=== PATIENT | female | born 1985 | race Caucasian/White ===

== ENCOUNTER 2019-11-19 08:36 | Outpatient (CLI) | payer OTHER, SELFPAY ==
--- NOTE | ~2019-11-19 | US_ITS ---
EXAMINATION: US OB <=14 wk fetus w TV DATE: 11/19/2019 09:35 INDICATION: Establish dating of during first trimester. Miscarriages with 2 prior pregnanci es. TECHNIQUE: Real-time pelvic ultrasound utilizing both a transvaginal and transabdominal probe was pe rformed. The interpreting radiologist was not present for the study. COMPARISON: None. FINDINGS: The uterus measures 9.8 x 6.9 x 4.9 cm. There is an intrauterine gestational sac. A yolk sac and fet al pole are identified. There is an additional echogenic filling defect projecting into the lumen of the gestational sac which is of indeterminate etiology. The crown rump length measures 7 mm, which co rrelates with an estimated gestational age of 6 weeks and 4 days. heart motion is identified me asuring 149 beats per minute (bpm) by M-mode Doppler. 2.4 x 2.4 x 0.5 cm hypoechoic subchorionic stacey pranay. The right ovary measures 3.1 x 2.3 x 2.3 cm. 2.3 cm anechoic corpus luteum cyst in the right ovary. N ormal vascular flow to the right ovary on color Doppler. The left ovary is not visualized. There is n o free fluid in the pelvis. IMPRESSION: 1. Single living fetus with heart rate of 149 bpm. 2. Gestational age by ultrasound of 6 weeks 4 day(s) +/- 4 day(s) with ultrasound estimated date of delivery (EMPERATRIZ) of 07/10/2020. 3. Indeterminate nodular echogenic region extending into the lumen of the gestational sac. Differenti al would include artifactual appearance due to mass effect from small underlying subchorionic hematom a or potentially a less advanced or failed twin . Recommend attention on follow-up imaging. Reviewed, dictated and finalized at location A. IMPRESSION: 1. Single living fetus with heart rate of 149 bpm. 2. Gestational age by ultrasound of 6 weeks 4 day(s) +/- 4 day(s) with ultraso und estimated date of delivery (EMPERATRIZ) of 07/10/2020. 3. Indeterminate nodular echogenic region extending into the lumen of the gesta tional sac. Differential would include artifactual appearance due to mass effec t from small underlying subchorionic hematoma or potentially a less advanced or failed twin . Recommend attention on follow-up imaging.
== END 2019-11-19 08:40 | disposition home or self-care (01) ==
PROVIDERS: PCP Family Medicine; Visit Provider Obstetrics & Gynecology Gynecology
DX: O26.21 Pregnancy care for patient with recurrent pregnancy loss, first trimester (principal); Z3A.01 Less than 8 weeks gestation of pregnancy
CPT/HCPCS: 76801; 76817

== ENCOUNTER 2019-12-22 13:46 | Outpatient (CLI) | payer OTHER, SELFPAY ==
--- NOTE | ~2019-12-22 | US_ITS ---
EXAMINATION: US OB <= 14 weeks fetus DATE: 12/22/2019 14:38 INDICATION: Subchorionic hematoma. TECHNIQUE: Real-time transabdominal pelvic ultrasound was performed. COMPARISON: Ultrasound 11/19/2019 FINDINGS: The uterus measures 10.8 x 8.5 x 9.0 cm. There is an intrauterine gestational sac. A yolk sac is orestes ntified. The crown rump length measures 6.0 cm, which correlates with an estimated gestational age of 12 weeks and 4 day(s) (+/-) 1 week(s) and 1 day(s). heart motion is identified measurin g 180 beats per minute (bpm) by M-mode Doppler. There is a small subchorionic hematoma measuring 1.9 x 1.2 x 1.6 cm. The right ovary measures 2.3 x 2.0 x 2.5 cm. The left ovary is not visualized. There is no free fluid in the pelvis. IMPRESSION: 1. Single living intrauterine gestation with estimated date of delivery of 07/10/2020 based on the u ltrasound from 11/19/2019. 2. Small subchorionic hematoma. Reviewed, dictated and finalized at location A. IMPRESSION: 1. Single living intrauterine gestation with estimated date of delivery of based on the ultrasound from 11/19/2019. 2. Small subchorionic hematoma.
== END 2019-12-22 13:47 | disposition home or self-care (01) ==
PROVIDERS: PCP Family Medicine; Visit Provider Obstetrics & Gynecology Gynecology
DX: O36.8910 Maternal care for other specified fetal problems, first trimester, not applicable or unspecified (principal)
CPT/HCPCS: 76801

== ENCOUNTER → 2020-01-25 15:22 | Outpatient (CLI) | payer OTHER, SELFPAY ==
--- NOTE | ~2020-01-25 | US_ITS ---
US OB limited 01/25/2020 15:44 Indication: Follow-up subchorionic hemorrhage Procedure: High-resolution Limited obstetrical ultrasound Comparison: 12/22/2019 Findings: There is a single living intrauterine in vertex presentation. heart rate is 159 bpm. Placenta is anterior. No evidence for previa. Amniotic fluid is subjectively normal. No brianna dence for subchorionic hemorrhage. Impression: 1: Single living intrauterine in vertex presentation. 2: Interval resolution of subchorionic hemorrhage. Reviewed, dictated and finalized at location B. Impression: 1: Single living intrauterine in vertex presentation. 2: Interval resolution of subchorionic hemorrhage.
== END ==
PROVIDERS: Visit Provider Obstetrics & Gynecology Gynecology
DX: O46.90 Antepartum hemorrhage, unspecified, unspecified trimester (principal); Z3A.00 Weeks of gestation of pregnancy not specified
CPT/HCPCS: 76815

== ENCOUNTER → 2020-02-17 10:16 | Outpatient (CLI) | payer OTHER, SELFPAY ==
--- NOTE | ~2020-02-17 | US_ITS ---
EXAMINATION: US OB >= 14 weeks Fetus DATE: 02/17/2020 10:46 INDICATION: Second trimester anatomic survey TECHNIQUE: Real-time ultrasound of the pelvis was performed. COMPARISON: 01/25/2020 FINDINGS: There is a single living fetus in vertex presentation. The placenta is anterior/fundal and 8.3 cm fro m the internal cervical os. heart rate is 156 beats per minute (bpm). cardiac activity a nd movement are noted. The amniotic fluid index is subjectively normal. The following anatomy was identified as normal: 4 chamber heart 3 vessel cord cord insertion kidneys urinary bladder stomach spine diaphragm ventricles cisterna magna cerebellum The following biometric data were obtained: Biparietal diameter (BPD): 4.9 cm; head circumference (HC): 18.2 cm; abdominal circumference (AC): 16 .1 cm; femur length (FL): 3.4 cm. These measurements are concordant. Estimated weight is 393 g +/- 59 g, which correlates with the >97th percentile when 07/10/2020 is used as estimated date of delivery. As single measurements, these parameters are each equal to the following estimated gestational ages w ith ranges of +/- 2 standard deviations: BPD: 20 weeks 6 days ( 19 weeks 1 days - 22 weeks 4 days). HC: 20 weeks 5 days ( 19 weeks 1 days - 22 weeks 1 days). AC: 21 weeks 2 days ( 19 weeks 1 days - 23 weeks 2 days). FL: 20 weeks 6 days ( 19 weeks 0 days - 22 weeks 5 days). estimated gestational age based solely on measurements from this exam is 21 weeks 0 days +/- 1 weeks 3 days. IMPRESSION: 1. Single living fetus in vertex presentation. 2. Estimated weight is 393 g +/- 59 g, which correlates with the >97th percentile when 07/10/20 20 is used as estimated date of delivery. Reviewed, dictated and finalized at location A. IMPRESSION: 1. Single living fetus in vertex presentation. 2. Estimated weight is 393 g +/- 59 g, which correlates with the >97th pe rcentile when 07/10/2020 is used as estimated date of delivery.
== END ==
PROVIDERS: Visit Provider Obstetrics & Gynecology Gynecology
DX: Z36.9 Encounter for antenatal screening, unspecified (principal); Z3A.21 21 weeks gestation of pregnancy
CPT/HCPCS: 76805

== ENCOUNTER 2020-06-11 18:30 | Outpatient (RCR) | payer OTHER, SELFPAY ==
[2020-06-11 19:24] VITALS: BP 116/67; PULSE 79
== END 2020-06-28 07:25 | disposition home or self-care (01) ==
LOC: ANHOBOP 18:30
PROVIDERS: PCP Family Medicine; Visit Provider Obstetrics & Gynecology Gynecology
DX: O36.8130 Decreased fetal movements, third trimester, not applicable or unspecified (principal); Z3A.36 36 weeks gestation of pregnancy
CPT/HCPCS: 59025

== ENCOUNTER → 2020-06-19 13:31 | Outpatient (CLI) | payer OTHER, SELFPAY ==
--- NOTE | ~2020-06-19 | US_ITS ---
EXAMINATION: US OB follow up DATE: 06/19/2020 14:00 INDICATION: Size greater than dates during third trimester TECHNIQUE: Real-time ultrasound of the pelvis was performed. The interpreting radiologist was not pre sent for the study. COMPARISON: 02/17/2020 FINDINGS: There is a single living fetus in vertex presentation. The placenta is anterior. card iac activity and movement are noted. heart rate is 150 beats per minute (bpm). The amniot ic fluid index is 10.6 cm which is normal. The following biometric data were obtained: Biparietal diameter (BPD): 9.2 cm; head circumference (HC): 31.4 cm; abdominal circumference (AC): 32 .8 cm; femur length (FL): 7.7 cm. These measurements are concordant. Estimated weight is 3194 g +/- 479 g, which correlates with the 67th percentile when 07/10/2020 is used as estimated date of delivery. As single measurements, these parameters are each equal to the following estimated gestational ages w ith ranges of +/- 2 standard deviations: BPD: 37 weeks 5 days ( 34 weeks 3 days - 40 weeks 6 days). HC: 35 weeks 2 days ( 32 weeks 2 days - 38 weeks 1 days). AC: 36 weeks 5 days ( 33 weeks 5 days - 39 weeks 6 days). FL: 39 weeks 4 days ( 36 weeks 3 days - 42 weeks 5 days). estimated gestational age based solely on measurements from this exam is 37 weeks 2 days +/- 2 weeks 4 days. IMPRESSION: 1. Single living fetus in vertex presentation. 2. Normal amniotic fluid index. 3. Estimated weight is 3194 g +/- 479 g, which correlates with the 67th percentile when 020 is used as estimated date of delivery. Reviewed, dictated and finalized at location A. AND [employer] IMPRESSION: 1. Single living fetus in vertex presentation. 2. Normal amniotic fluid index. 3. Estimated weight is 3194 g +/- 479 g, which correlates with the 67th p ercentile when 07/10/2020 is used as estimated date of delivery.
== END ==
PROVIDERS: Visit Provider Obstetrics & Gynecology Gynecology
DX: O36.63X3 Maternal care for excessive fetal growth, third trimester, fetus 3 (principal); Z3A.37 37 weeks gestation of pregnancy
CPT/HCPCS: 76816

== ENCOUNTER 2020-06-25 05:53 | Inpatient (IN) | payer OTHER, SELFPAY ==
[2020-06-25] VITALS (15 sets, daily range): BP systolic 99–139; BP diastolic 50–104; PULSE 58–131; RESP 18; TEMP 36.7–37.7; O2SAT 98–100; BMI 29.7
[2020-06-25] MEDS: AMPICILLIN 2 GM/NS 100 ML 2 GM/100 ML BAG IVPB (06:12)
[2020-06-25] MEDS: LACTATED RINGERS 1,000 ML 125 ML IV CONT ×2 (06:13→06:34)
[2020-06-25 06:27] LABS: Basophils Percent Auto 0.2 % (0.2-1.2); Eosinophils Absolute Auto 0.1 K/mm3 (0-0.3); Hematocrit 39.4 % (37.0-47.0); Hemoglobin 14.4 g/dL (12.0-15.0); Immature Granulocyte Absolute 0.06 K/mm3 (0.00-0.031); Immature Granulocyte Percent A 0.6 % (0-0.5); Lymphocytes Absolute Auto 2.05 K/mm3 (0.9-3.2); Lymphocytes Percent Auto 21.9 % (18.3-44.2); Mean Corpuscular HGB Conc 36.5 g/dl (32-36); Mean Corpuscular Hemoglobin 31.5 pg (26-34); Mean Corpuscular Volume 86.2 fl (80-100); Mean Platelet Volume 11.2 fl (7.4-10.4); Monocytes Absolute Auto 0.8 K/mm3 (0.1-0.6); Monocytes Percent Auto 8.2 % (2.6-8.5); Neutrophils Absolute Auto 6.4 K/mm3 (1.3-6.7); Neutrophils Percent Auto 68.1 % (45.5-73.1); Platelet Count Result 246 k/mm3 (150-375); Red Blood Count 4.57 M/mm3 (4.2-5.4); Red Cell Distribution Width 13.1 % (11.5-14.5); White Blood Count 9.4 K/mm3 (4.5-10.0)
--- NOTE | 2020-06-25 06:38 | P.PNAN_ITS ---
Anes - Eval Pre Procedure Procedure: Labor epidural Date/Time: 06/25/20 06:38 Surgeon: shaw Preop Diagnosis: ABD painn with contractions Pre Op Diagnosis: CTX Patient Data Age: 35 Gender: F Height: Weight: Allergies Allergy/AdvReac Type Severity Reaction Status Date / Time No Known Allergies Allergy Verified 06/23/20 12:40 Home Medications Medication Instructions Recorded Confirmed Type ergocalciferol (vitamin D2) 1,250 mcg PO WEEKLY 06/23/20 06/23/20 History [Vitamin D2] prenat.vits,aiden,[id number] 1 tablet PO DAILY 06/23/20 06/23/20 History [ #2] sertraline 100 mg PO DAILY 06/23/20 06/23/20 History Laboratory Tests 06/25/20 06/25/20 06:09 06:09 WBC 9.4 K/mm3 K/mm3 (4.5-10.0) RBC 4.57 M/mm3 M/mm3 (4.2-5.4) Hgb 14.4 g/dL g/dL (12.0-15.0) Hct 39.4 % % (37.0-47.0) MCV 86.2 fl fl (80-100) MCH 31.5 pg pg (26-34) MCHC 36.5 g/dl H g/dl (32-36) RDW 13.1 % % (11.5-14.5) Plt Count 246 k/mm3 k/mm3 (150-375) MPV 11.2 fl H fl (7.4-10.4) Immature Gran % (Auto) 0.6 % H % (0-0.5) Neut % (Auto) 68.1 % % (45.5-73.1) Lymph % (Auto) 21.9 % % (18.3-44.2) [place] % (Auto) 8.2 % % (2.6-8.5) Eos % (Auto) 1.0 % % (0-4.4) Baso % (Auto) 0.2 % % (0.2-1.2) Lymph # (Auto) 2.05 K/mm3 K/mm3 (0.9-3.2) [place] # (Auto) 0.8 K/mm3 H K/mm3 (0.1-0.6) Eos # (Auto) 0.1 K/mm3 K/mm3 (0-0.3) Baso # (Auto) 0.0 K/mm3 K/mm3 (0.0-0.1) Abs Immat Gran (auto) 0.06 K/mm3 H K/mm3 (0.00-0.031) Absolute Neuts (auto) 6.4 K/mm3 K/mm3 (1.3-6.7) Absolute Nucleated RBC 0.0 K/mm3 K/mm3 (0.0-0.012) Nucleated RBC % 0.0 % % (0.0-0.2) RPR Pending Patient hx anesthesia problems: none Family hx anesthesia problems: none [facility] Past Medical History Medical History Depression Obesity and not yet delivered Family History Family History Grandparent Family history of malignant neoplasm of breast Hypertension DEASED Social History Social History Smoking status: Never smoker Alcohol intake: current Substance use: never Spiritual care concerns: No Exam Day of Procedure 06/25/20 06:38 Patient weight: overweight Airway: Mallampati scale class II Neurological: alert and oriented
--- NOTE | 2020-06-25 07:17 | P.PCNOB_ITS ---
OB - Delivery Note Procedure Delivery date: 06/25/20 Procedure: Intrapartal events: None Induction method: none Delivery monitor: internal FHT and internal uterine Route of delivery: Laceration Description: None Delivery repair: vicryl Specimen: No Quantitative Blood Loss (ml): 100 Anesthesia type: Epidural Disposition: floor [place] Baby Date of : 06/25/20 Time of : 07:04 Weeks of gestation at delivery: 38 gender: Female Weight (pounds): 8 Weight (ounces): 0 presentation: vertex position: Left Occiput Anterior Placenta delivery description: Spontaneous cord vessel description: 3 Vessels score one minute: 9 score five minutes: 9
--- NOTE | 2020-06-25 07:20 | PM.OBDSVD ---
DS: Admitting Diagnosis Admitting Diagnosis Admitting Diagnosis: CTX OB - DS: Summary OB Procedures : Ultrasound OB Procedures Intrapartum: Spontaneous Vag Delivery OB Procedures: : None Time Spent with Patient Time attestation: Total time spent providing and/or coordinating discharge services: DS: Data Data Completed and Pending Labs on day of discharge: Labs from last 24 hours 06/25/20 06/25/20 06:09 06:09 WBC 9.4 RBC 4.57 Hgb 14.4 Hct 39.4 MCV 86.2 MCH 31.5 MCHC 36.5 H RDW 13.1 Plt Count 246 MPV 11.2 H Immature Gran % (Auto) 0.6 H Neut % (Auto) 68.1 Lymph % (Auto) 21.9 [place] % (Auto) 8.2 Eos % (Auto) 1.0 Baso % (Auto) 0.2 Lymph # (Auto) 2.05 [place] # (Auto) 0.8 H Eos # (Auto) 0.1 Baso # (Auto) 0.0 Abs Immat Gran (auto) 0.06 H Absolute Neuts (auto) 6.4 Absolute Nucleated RBC 0.0 Nucleated RBC % 0.0 RPR Pending Discharge Plan Discharge Attending physician on discharge: Seb Wise Discharging Clinician: Seb Wise Patient Disposition: Home, Self-Care Activity: may shower Diet: regular Discharge Instructions: Education: Mom and Baby Guide Given to: Mother Follow-Up: Call your delivering provider's office for an appointment to be seen. Mom and baby should come to the [facility] for the follow-up appointment.Appointment Date/Time: June 27, 2020 at 10:00 am What to expect at your follow-up visit: Physical Assessment Call [phone] if you are unable to keep your appointment time. BREAST CARE: * Wear a snug supportive bra. * For engorgement discomfort: Breast Feeding: * Apply warm moist washcloths * Express milk as needed to relieve engorgement * Wear loose clothing * For sore nipples: * Identify correct latch-on * Apply warm moist washcloths before and after nursing * Air dry nipples after nursing * May apply Lansinoh cream to nipples PERINEAL CARE: * Until bleeding stops, use your susanne bottle after urinating * Change your pad frequently throughout the day * You may take sitz baths several times a day (fill your bathtub with warm water and soak for 20 minutes.) Do NOT bathe in the water * No tub baths until seen by your physician - You may shower ACTIVITY: * Rest as much as possible. * Do not exercise or lift anything heavier than your baby (such as laundry or other children.) * Avoid stairs or driving as much as possible. * Do not put anything into the vagina. No douching, tampons, or sexual activity until seen by physician. NOTIFY PHYSICIAN IF YOU HAVE ANY QUESTIONS OR IF ANY OF THE FOLLOWING SYMPTOMS OCCUR: * If your perineum becomes red, swollen, or more painful than what you have experienced in the hospital. * If your vaginal bleeding becomes foul smelling. * If your vaginal bleeding becomes more heavy than a period or if your bleeding changes from pink to bright red. However, you may pass an occasional walnut-sized clot once or twice for the first week . * If you experience a sharp, shooting pain in you calves. * If you discover a hard, reddened area on your breast or if you experience flu-like symptoms. DIET: * Eat regular, well-balanced meals. * Drink plenty of fluids daily. If , drink to thirst. Patient Instructions: Antibiotic Form Stand Alone Forms: General Discharge Information Follow-up/Referrals: Seb Wise MD [Physician] - Call for Appointment Discharge Medications: New ibuprofen 600 mg Tablet 600 mg PO Q6H PRN (Reason: Cramping) Qty: 60 RF: 0 Continued sertraline 100 mg Tablet 100 mg PO DAILY RF: 0 ergocalciferol (vitamin D2) [Vitamin D2] 1,250 mcg (50,000 unit) Capsule 1,250 mcg PO WEEKLY RF: 0 prenat.vits,aiden,[id number] Tablet 1 tablet PO DAILY RF: 0 Date of admission: 06/25/20 05:53 Primary Care Provider: Bryson Hunter
[2020-06-25] MEDS: OXYTOCIN 30 UNITS/NS 500 ML 30 UNITS/500 ML BAG 125 UNITS IV CONT (07:29)
[2020-06-25] MEDS: IBUPROFEN 600 MG TABLET PO ×3 (07:30→20:29)
--- NOTE | 2020-06-25 07:53 | LDADM ---
This patient, Akila Kohler, was admitted to Labor/Delivery/Recovery 104 on 06/25/20 at 05:53. Plans for labor, pain management and were discussed with patient. Patient/family oriented to hospital policies and general routines including ID bracelet, bed and alarms, visiting hours, pain management, procedures, bathroom and other care routines, personal items, smoking policy, room service/diet and guest tray routines, security routines, and visiting hours. Patient/Family are encouraged to report perceived risks to care and to ask questions if they do not understand what they are told or what they should do. See OBIX for further documentation.
[2020-06-25] MEDS: MULTIVIT/MIN/PREN/FOL AC/IRON TABLET 1 TAB PO (09:00)
[2020-06-25] MEDS: BENZOCAINE 20% AER SPR (*SP) 56 GM CAN 1 SPRAY TOPICAL ×2 (09:01→20:39)
[2020-06-25] MEDS: WITCH HAZEL 40 PADS 1 PAD TOPICAL (09:01)
--- NOTE | 2020-06-25 10:24 | PC.NURSE ---
Patient transferred to post room # 284 per wheelchair. Support person present. Oriented to unit, room, information board, rooming in, admission packet and security measures. Patient verbalizes understanding.
[2020-06-25] MEDS: DOCUSATE SODIUM 100 MG CAPSULE PO (17:08)
[2020-06-25] MEDS: ACETAMINOPHEN 325 MG TABLET 650 MG PO (20:30)
[2020-06-25] MEDS: LANOLIN (LANSINOH) 7.5 GM CREAM 1 APPLIC TOPICAL (20:39)
[2020-06-26] MEDS: ACETAMINOPHEN 325 MG TABLET 650 MG PO ×3 (02:34→16:43)
[2020-06-26] MEDS: IBUPROFEN 600 MG TABLET PO ×3 (02:34→16:44)
[2020-06-26 05:14] LABS: Hematocrit 34.9 % (37.0-47.0); Hemoglobin 11.6 g/dL (12.0-15.0)
[2020-06-26 08:00] VITALS: BP 96/54; PULSE 52; RESP 18; TEMP 36.4
[2020-06-26] MEDS: DOCUSATE SODIUM 100 MG CAPSULE PO ×2 (09:07→16:44)
--- NOTE | 2020-06-26 10:42 | PC.NURSE ---
Consulted with patient, reviewed feeding cues, frequencies, duration of feedings, feeding elimination flow sheet, and signs of adequate intake. Demonstrated stimulation techniques to wake for feeding. Assisted with infant to breast. Reviewed positioning/alignment, holding breast and asymmetrical latch on. was able to latch correctly. Infant nursed eagerly, with steady draws and occasional swallowing noted. Reviewed signs of a correct latch, effective nursing and suck swallow ratio. was able to maintain latch with minimal discomfort to mother. Nipple care reviewed. Instructed mother to call out for RN assistance if she is unable to latch for feeding or she has discomfort with nursing. Instructed feeding should be initiated three hours from start of last feeding or if feeding cues are noted before. Mother voiced understanding of information shared. Nipple shield provided to mother prior to my assessment. Instructions given on application and cleaning of shield. Discussed nipple shield precautions and possible complications. Patient able to return demonstration on proper application of shield. Discussed the need to initiate pumping if continues to nurse with the shield. Patient verbalizes understanding. Breast pump provided due to patient request and use of nipple shield. Instructions given on breast pump care and usage, pumping schedule, nipple care, and collection and storage of breast milk. Encouraged [id number], breast massage and manual expression to stimulate supply. Assessed patient for correct flange size, placement and draw. Patient verbalizes and demonstrates understanding of instructions.
[2020-06-26 12:07] LABS: Rapid Plasma Reagin Non-Reactive (NonReactive)
--- NOTE | 2020-06-26 13:14 | PM.OBPNVD ---
OB - PN: Subj Subjective Date/time seen: 06/26/20 13:14 S: doing well no complaints today. Pain controlled minimal bleeding. OB - PN: Obj Data Labs CBC & Chem 7: 06/26/20 04:58 Labs: Laboratory Results - last 24 hr 06/25/20 06/26/20 06:09 04:58 Hgb 11.6 L Hct 34.9 L RPR Non-reactive OB - PN A/P Assessment and Plan (1) (normal spontaneous vaginal delivery): Code(s): O80 - Encounter for full-term uncomplicated delivery Status: Acute Assessment and Plan: Continue with pp care. D/c home patient desires Nexplanon for control and continue all home meds. Time Spent With Patient Time: Total time spent is greater than 50% in coordination of care (as documented) at patient's floor/unit and/or counseling patient: Exam Const: General: comfortable and no acute distress GI: Other: ff below umbilicus abdominal band in place
--- NOTE | 2020-06-26 14:24 | PC.NURSE ---
Addendum entered by Kaity Burrell RN 06/26/20 14:36: Mom is pumping after each breastfeed for 10 minutes to encourage milk supply. Original Note: Mother verbalizes she is able to independently latch infant with appropriate positioning/alignment. She has minimal nipple discomfort from crack in nipple, is feeding as required and waking to feed if needed. Mom is using a nipple shield for most feedings. has had 7 effective feedings in the past 24 hours. The last 4 feedings supplemented with formula after per moms request. Infant is currently meeting outcomes for weight, output, jaundice and feeding frequencies. Mother states she feels confident to continue effective at home. Reviewed transition to breast milk, signs of adequate intake, and engorgement/relief. Instructed to call ICP if intake/output less than required. Reviewed community resources on the [facility] website and in the Mom/Baby guide. Information on outpatient services provided. Mother has no further questions at this time.
[2020-06-27 09:56] VITALS: BP 116/76; PULSE 73; RESP 20; TEMP 36.4; O2SAT 98
== END 2020-06-26 19:02 | disposition home or self-care (01) | DRG 807 ==
LOC: ANHOB2 06-26 14:44 → ANHLDR 06-27 11:11 → ANHOB2 06-27 11:11
PROVIDERS: Admitting Provider Obstetrics & Gynecology; PCP Family Medicine; Visit Provider Obstetrics & Gynecology
DX: O99.344 Other mental disorders complicating childbirth (principal); Z37.0 Single live birth; Z3A.38 38 weeks gestation of pregnancy; F41.8 Other specified anxiety disorders; O99.214 Obesity complicating childbirth; E66.9 Obesity, unspecified; Z86.19 Personal history of other infectious and parasitic diseases
CPT/HCPCS: 36415; 85014; 85018; 85025; 86592; 86850; 86900; 86901; A9270; J0290; J2590; J2795; J7120

== ENCOUNTER 2020-07-12 13:58 | Outpatient (RCR) | payer OTHER, SELFPAY ==
--- NOTE | 2020-07-12 14:10 | PC.NURSE ---
IN 1315 OUT 1355 HISTORY: Pt. delivered at [facility] at 38 weeks. had no complications after delivery. Mother had no complications after delivery. Infant is now 2 weeks and 3 days old. Infant appears to be well cared for. Infant has been seen by ICP as scheduled. last seen by ICP on 07/10/2020. Mother reports: She started removing the nipple shield for feedings this am. States infant did well on left side but then she used the nipple shield on right side after repeated attempts to get on the breast. Mother wishes: To transition to doing more without the nipple shield. Currently at 8 wets per day and 8 yellow seedy stools per day. weight: 8-0 Lowest weight: 7-6 Last Weight: 8-6 Pre feeding weight: 3882 grams Post feeding weight: 3950 grams OBSERVATION: Mom held infant in cross cradle position with good alignment, infant latched well without nipple shield onto right breast. Mom encouraged to provide good head and breast support to maintain deep latch. As infant slipped into a more shallow latch mom shown how to get more breast into 's mouth while feeding. Mom was then able to do this independently on the left breast. Infant nursed eagerly with frequent swallowing while on right breast. Small amount of jaw quivering noted as the infant finished feeding on right side. Infant was then burped and had a small amount of spit up. Mom attempted to latch on the left breast without success. would pull back & try to reattach to breast. Mom attached nipple shield and latched with deep latch and fed on left breast. After 3-4 minutes mom pulled off nipple shield and continued to nurse eagerly with frequent swallowing noted. Mom states she had no pain with feeding. PLAN: Mother will continue to attempt to latch infant without nipple shield and concentrate on achieving deep latch by supporting the breast and the infant's head. If mother or baby get frustrated mom will latch infant using shield and try taking the shield away a few minutes into feeding or try again at the next feeding. Mom will also continue to watch for feeding cues and latch at the early signs of hunger. Mom will call with further questions or concerns.
== END 2020-08-24 08:30 | disposition home or self-care (01) ==
LOC: ANHOBOP 13:58
PROVIDERS: PCP Family Medicine; Visit Provider Pediatrics
DX: Z39.1 Encounter for care and examination of lactating mother (principal)
CPT/HCPCS: 99212; G0463

== ENCOUNTER 2021-10-25 00:43 | Day surgery (SDC) | payer OTHER, SELFPAY ==
[2021-10-19 10:26] VITALS: BMI 23.4
--- NOTE | 2021-10-19 10:33 | PC.NURSE ---
Report to the Outpatient Waiting Room, entrance under the green pavilion located off [facility], at time 0600 on date 10/25/21. OR Time: 0730. - You and your visitor will be asked a series of questions to screen for COVID 19 for your protection. - A mask is required within the hospital. One visitor will be allowed to accompany the patient into the hospital. Patients visitor will be instructed to remain with patient at all times or leave the building. We will allow the visitor to come back to the postoperative area when patient is ready. Preoperative COVID Testing Requirements: No COVID Test needed if: (proof is required; if not received patient will have Rapid Test prior to entry) - Patient has received COVID Vaccine at least 14 days prior to procedure date or - Patient has positive COVID test result within last 90 days of surgery date. COVID Test needed if above criteria is not met Patients may have clear liquids (water, carbonated beverages, clear teas, apple juice) until 3 hours prior to surgery with a maximum of 20 ounces. - No food from midnight until time of surgery Take the following medications with a SIP of water the morning of surgery: VENLAFAXINE Medications to discontinue per physician: N/A Date to take last dose: N/A Please no make-up, nail syriac, hairspray, perfume, deodorant, or body powder the day of surgery. No jewelry (including any body piercings) or valuables the day of surgery, leave them at home. Please take a shower or bath the night before, or the morning of, surgery with an antibacterial soap. Wear comfortable, loose fitting clothing. - Jewelry must be removed prior to entering the operating room. Rings and piercings that are not removed may be cut off. - The hospital will not accept responsibility for valuables. - Please leave all valuables, including medications, at home the day of surgery. If you are going home after surgery, a licensed local intermodal truck driver must drive you home. - NO public transportation without another adult. - We recommend that an adult stay with you for 24 hours following discharge. - We also recommend that you do not drive, make important decision, drink alcoholic beverages, or take any drugs that were not prescribed by your health care provider for at least 24 hours after your discharge time. Follow any additional instructions given to you from your surgeon. Telephone instructions given to JUSTUS BEE and asked if any additional questions and then verbalized understanding. Patient advised to call surgeon office or pre surgery nurse liaison [phone] if any additional questions.
[2021-10-25 06:46] VITALS: BP 121/71; PULSE 78; RESP 16; TEMP 36.6; O2SAT 100
[2021-10-25] MEDS: LACTATED RINGERS 1,000 ML 30 ML IV CONT (06:50)
--- NOTE | 2021-10-25 07:03 | WPDHPUPDATE1 ---
History and Physical Update Update Date/Time: 10/25/21 07:03 History and Physical has been reviewed, including an updated exam of the patient. There are NO changes in the patient's condition. Risks, benefits, and alternatives have been discussed and questions answered. Patient agrees to proceed with procedure.
--- NOTE | 2021-10-25 07:06 | WPDANESEPPF ---
Anes - Initial Pre Proc Eval Procedure: Operation Date: 10/25/21 07:30 Proposed Procedures p Excision of Right Volar Wrist Ganglion Cyst - Kali Huerta MD Date/Time: 10/25/21 07:06 Surgeon: Kali Huerta MD Pre Op Diagnosis: right volar wrist ganglion Patient Data Age: 36 Gender: F Height: 1.7 m Weight: 69.9 kg Last Vital Signs Temp 36.6 C 10/25/21 06:46 Pulse 78 10/25/21 06:46 Resp 16 10/25/21 06:46 BP 121/71 10/25/21 06:46 Pulse Ox 100 10/25/21 06:46 Allergies Allergy/AdvReac Type Severity Reaction Status Date / Time No Known Allergies Allergy Verified 10/25/21 06:26 Home Medications Medication Instructions Recorded Confirmed Type ibuprofen 600 mg PO Q6H PRN #60 tablet 06/26/20 10/25/21 Rx azelastine 137 mcg (0.1 %) nasal 1 spray INTRANASAL Q12H #90 ml 03/05/21 10/25/21 Rx spray aerosol fluticasone propionate 50 1 spray INTRANASAL BID #48 ml 03/05/21 10/25/21 Rx mcg/actuation nasal spray,suspension venlafaxine 25 mg PO BID 10/19/21 10/25/21 History Patient hx anesthesia problems: none Family hx anesthesia problems: none Results Review: All pre-operative results and documents have been reviewed as part of the pre-operative evaluation. [facility] Past Medical History Medical History (Updated 10/30/20 @ 10:31 by Santa Sykes) Depression (normal spontaneous vaginal delivery) Obesity and not yet delivered Family History Family History Grandparent Family history of malignant neoplasm of breast Hypertension DEASED Social History Social History Smoking status: Never smoker Alcohol intake: current Drinks per week: 4 Substance use: never Substance use type: does not use Living arrangements: with family Spiritual care concerns: No Anes - Eval Final PreProcedure Day of Procedure 10/25/21 07:06 Patient weight: normal Heart: regular rate and rhythm Lungs: clear to auscultation and normal air movement Airway: Mallampati scale class II Neurological: alert and oriented Last oral intake: >/= 8 hours ASA classification: II Emergent: no Anesthetic plan: proceed Anesthesia type and monitoring: general GIVS and LMA Results Review: All pre-operative results and documents have been reviewed as part of the pre-operative evaluation. Informed Consent: The patient's anesthetic plan and its attendant risks and benefits were discussed with the patient/family/POA. Questions were solicited and answers provided to the satisfaction of the patient/family/POA.
[2021-10-25] MEDS: LIDO 1%/EPINEPHRINE/PF 1:200,000 30 ML VIAL INFILTRATE (07:59)
[2021-10-25 08:08] VITALS: BP 110/64; PULSE 87; RESP 14; O2SAT 100
--- NOTE | 2021-10-25 08:17 | W.PM.PROC2 ---
Procedure Note - Detailed Date of Procedure 10/25/21 Pre-op Diagnosis right volar wrist ganglion Post-op Diagnosis Same Procedure Performed Excision right volar wrist ganglion cyst Surgeon Kali Huerta MD Anesthesia MAC Findings Ganglion cyst Description of Procedure The prominent site on the right volar wrist was marked on the patient's wrist in the holding area. She was taken to the operating room where she was placed supine on the operating table. She was given IV sedation. The right upper extremity was prepped and draped in usual fashion. A time-out was held and confirmed. The site was locally infiltrated with 1% lidocaine with epinephrine. The area was exsanguinated and the tourniquet inflated to 250 mmHg. The transverse incision was made over the mass and dissection was carried carefully to the surface of this. Small vascular structures were retained out of the way. Dissection was carried around the spherical mass down to its root at the radiocarpal joint. The radial artery was not specifically identified. A small vascular sites were cauterized. With the cyst was amputated at its base. The tourniquet was released. Some pressure was held on the wound for a couple minutes to diminish the bleeding. The wound was closed with intradermal 4-0 Monocryl sutures. The usual bandage was applied. Patient was discharged home with a prescription for hydrocodone 5/325 4. Estimated Blood Loss 4 Drains No Packing No Pathology None sent Complications No immediate complications Condition Stable Disposition Same day
[2021-10-25 08:30] VITALS: BP 112/68; PULSE 78; RESP 16; O2SAT 100
[2021-10-25 09:00] VITALS: BP 107/61; PULSE 75; RESP 16
== END 2021-10-25 09:13 | disposition home or self-care (01) ==
PROVIDERS: PCP Family Medicine; Visit Provider Plastic Surgery
PROC: (CPT 25111; principal; 2021-10-25 07:30)
DX: M67.431 Ganglion, right wrist (principal); F32.9 Major depressive disorder, single episode, unspecified
CPT/HCPCS: 25111; A9270; J2250; J3010; J7120

== ENCOUNTER 2024-12-09 06:56 | Day surgery (SDC) | payer OTHER, SELFPAY ==
[2024-11-22 11:27] VITALS: BMI 21.2
--- NOTE | 2024-12-09 06:43 | WPDHPUPDATE1 ---
History and Physical Update Update Date/Time: 12/09/24 06:43 Patient seen and examined in pre-operative holding area. No interval change in medical history or symptoms. Patient recalls previous discussion of benefits and alternatives to procedure. Continues to desire to proceed with right volar wrist ganglion cyst excision. Reviewed procedure, post-op expectations and risks including but not limited to bleeding, infection, injury to tendon/nerve/vessel, decreased hand function, stiffness, RSD, no change or worsening of symptoms, recurrence. I discussed the possible use of assistants and their participation in the case. Patient stated understanding and signed the consent form wishing to proceed.
--- NOTE | 2024-12-09 06:44 | P.OP_ITS ---
Procedure Note - Detailed Date of Procedure 12/09/24 Pre-op Diagnosis Ganglion Cyst Right Wrist Post-op Diagnosis Same Procedure Performed right volar wrist ganglion cyst Surgeon David Lindsay MD Industrial Arts Teacher vianey moya pa-c Anesthesia MAC Description of Procedure INFORMED CONSENT: The patient was seen and examined and marked in the pre-op area.? The patient signed the consent form. PROCEDURE IN DETAIL:The patient taken back to OR on the stretcher in supine position. Time out performed with anesthesia, surgeon and staff agreeing on patient's name site and surgery to be performed SCDs were placed on the lower extremities and inflated. A tourniquet was placed on {right} upper extremity and antibiotics given IV After anesthesia administered sedation I injected {5}cc 1%lido with epi and 0.5% marcaine plain at the operative site The?{right upper extremity}?was prepped and draped in sterile fashion the??{right upper extremity} was? exsanguinated proximal to mass with Esmarch bandage and tourniquet inflated to 250mmHg I proceeded with making a longitudinal incision over the right volar wrist mass through skin and dermis with a 15 blade scalpel. Littler scissors were used to spread through subcutaneous tissue down to the mass. The mass was identified and I proceeded with circumferential dissection of the mass down to the volar wrist capsule. The mass was then excised from the capsule with bipolar cautery. I irrigated with normal saline. I repaired the capsular defect with 4-0 Vicryl suture. 4-0 Vicryl was used for dermis and 4-0 Monocryl for subcuticular closure. A dressing of Dermabond, 4x4, blayne, and a volar splint was applied for patient safety, security, and comfort and secured with an joe bandage after the tourniquet was let down noting the hand was warm and well perfused. The patient was then awaken from anesthesia and transferred to the recovery room in stable condition.? Complications - none EBL- 0cc Disposition - home in stable conditions vianey moya pa-c was essential for positioining, retraction, closure and dressing placement [facility] Billing Surgery - Charge Forward: Surgery Billing ([id number] same for vianey segura )
--- OUTSIDE RECORDS SUMMARY | 2024-12-09 07:55 | XMS_ITS | Clinical Summary ---
Author Organization [facility] Address [address] [place] [address] Care Team Providers Care District Captain Name Role Phone Bryson Hunter MD Primary Care Provider [phone] Allergies No known active allergies Medications atomoxetine (STRATTERA) 40 mg capsule 03/03/2023 Active DOCOSAHEXAENOIC ACID ORAL 01/06/2018 Active ergocalciferol (VITAMIN D) 50,000 unit capsule 01/12/2018 Active sertraline (ZOLOFT) 100 mg tablet 03/03/2018 Active valACYclovir (VALTREX) 1 gram tablet 12/12/2017 Active venlafaxine XR (EFFEXOR-XR) 75 mg 24 hr capsule 05/16/2023 Active predniSONE (DELTASONE) 10 mg tablet Take 5 tabs (50mg) daily for 2 days, then take 4 tabs (40mg) daily for 2 days. Continue to decrease by 1 tab (10mg) every 2 days until gone. 30 tablet 05/28/2023 Active Active Problems No known active problems Social History Tobacco Use Types Packs/Day Years Used Date Smoking Tobacco: Never Assessed Comments Unknown Sex and Gender Information Value Date Recorded Sex Assigned at Not on file Legal Sex Female 10:54 AM WELFARE SPECIALIST Gender Identity Not on file Sexual Orientation Not on file Obstetrics History Last Filed Vital Signs Vital Sign Reading Time Taken Comments Blood Pressure 112/64 05/28/2023 3:07 PM WELFARE SPECIALIST Pulse 96 05/28/2023 3:07 PM WELFARE SPECIALIST Temperature 38.1 C (100.6 F) 05/28/2023 3:07 PM WELFARE SPECIALIST Respiratory Rate 18 05/28/2023 3:07 PM WELFARE SPECIALIST Oxygen Saturation 98% 05/28/2023 3:07 PM WELFARE SPECIALIST Inhaled Oxygen Concentration - - Weight 63.5 kg (140 lb) 05/28/2023 3:07 PM WELFARE SPECIALIST Height 170.2 cm (5' 7 ) 05/28/2023 3:07 PM WELFARE SPECIALIST Body Mass Index 21.93 05/28/2023 3:07 PM WELFARE SPECIALIST Plan of Treatment Health Maintenance Due Date Last Done Comments Cervical Cancer Screening 1987 Depression Screening 1987 Hepatitis C Screening 1987 DTaP/Tdap/Td Vaccine (1 - Tdap) 1998 Varicella Vaccines (1 of 2 - 13+ 2-dose series) 2000 Hepatitis B Screening 2005 Regular Well Visit/Exam 18-64 2005 Covid-19 Vaccine (2 - 2023-2 5 season) 2024 05/17/2021 Influenza Vaccine (Season Ended) 2025 05/17/20 21 HPV Vaccines Aged Out No longer eligi ble based on patient's age to complete this topic Pneumococcal vaccine <65 Aged Out No longer eligible based on patient's age to complete this topic Insurance [employer] Care Teams District Captain Relationship Specialty Start Date End Date Bryson Hunter MD PCP - General Family Medicine 05/28/23
--- OUTSIDE RECORDS SUMMARY | 2024-12-09 07:55 | XMS_ITS | Clinical Summary ---
Author Organization [facility] Address [address] [address] [place] [address] Phone Care Team Providers Care Screen Printing Machine Operator Name Role Phone Bryson Hunter MD Primary Care Provider [phone] Family History Medical History Relation Name Comments Breast Cancer Maternal Grandmother Relation Name Status Comments Maternal Grandmother Social History Tobacco Use Types Packs/Day Years Used Date Smoking Tobacco: Never Assessed Comments Unknown Sex and Gender Information Value Date Recorded Sex Assigned at Not on file Legal Sex Female 9:57 AM CDT Gender Identity Not on file Sexual Orientation Not on file Plan of Treatment Health Maintenance Due Date Last Done Comments DTAP/TDAP/TD VACCINES (1 - Tdap) 2006 HEPATITIS B VACCINES (1 of 3 - 19+ 3-dose series) 2006 HPV/Cotest (21-29) 2008 CERVICAL CANCER SCREENING 2017 HPV/Cotest (30-65) 2017 PAP SMEAR 2017 INFLUENZA VACCINE (#1) 2024 04/22/2023 HPV VACCINES Aged Out No longer eligi ble based on patient's age to complete this topic Insurance [employer] OPEN ACCESS HMO Care Teams Screen Printing Machine Operator Relationship Specialty Start Date End Date Bryson Hunter MD [address] [place] [address] PCP - General Family Practice 10/08/17
--- OUTSIDE RECORDS SUMMARY | 2024-12-09 07:55 | XMS_ITS | Referral Summary ---
Author Organization [facility] [place] [facility] Address [address] [place] [address] Care Team Providers Care Security Shift Manager Name Role Phone Bryson Hunter MD Primary Care Provider [phone] Allergies No known active allergies Medications atomoxetine [...] on file Legal Sex Female 10:54 AM SUPERVISOR GROWER Gender Identity Not on file Sexual Orientation Not on file Last Filed Vital Signs Vital Sign Reading Time Taken Comments Blood Pressure 112/64 05/28/2023 3:07 PM SUPERVISOR GROWER Pulse 96 05/28/2023 3:07 PM SUPERVISOR GROWER Temperature 38.1 C (100.6 F) 05/28/2023 3:07 PM SUPERVISOR GROWER Respiratory Rate 18 05/28/2023 3:07 PM SUPERVISOR GROWER Oxygen Saturation 98% 05/28/2023 3:07 PM SUPERVISOR GROWER Inhaled Oxygen Concentration - - Weight 63.5 kg (140 lb) 05/28/2023 3:07 PM SUPERVISOR GROWER Height 170.2 cm (5' 7 ) 05/28/2023 3:07 PM SUPERVISOR GROWER Body Mass Index 21.93 05/28/2023 3:07 PM SUPERVISOR GROWER Plan of Treatment Not on file Insurance CIGNA CIGNA Care Teams Security Shift Manager Relationship Specialty Start Date End Date Bryson Hunter MD PCP - General Family Medicine 05/28/23
[2024-12-09 08:00] VITALS: BMI 21.7
[2024-12-09 08:26] VITALS: BP 99/65; PULSE 75; RESP 15; TEMP 36.5; O2SAT 100
[2024-12-09] MEDS: LACTATED RINGERS 1,000 ML 30 ML IV CONT (08:29)
--- NOTE | 2024-12-09 08:29 | P.PNAN_ITS ---
Anes - Initial Pre Proc Eval Procedure: Operation Date: 12/09/24 09:15 Proposed Procedures p Excision Ganglion Cyst Right Volar Wrist - David Lindsay MD Date/Time: 12/09/24 08:29 Surgeon: David Lindsay MD Pre Op Diagnosis: Ganglion Cyst Right Wrist Patient Data Age: 39 Gender: F Height: 1.7 m Weight: 62.95 kg Last Vital Signs Temp 36.5 C 12/09/24 08:26 Pulse 75 12/09/24 08:26 Resp 15 12/09/24 08:26 BP 99/65 L 12/09/24 08:26 Pulse Ox 100 12/09/24 08:26 O2 Del Method Room Air 12/09/24 08:26 Allergies Allergy/AdvReac Type Severity Reaction Status Date / Time No Known Allergies Allergy Verified 11/24/24 08:05 Home Medications ?Medication ?Instructions ?Recorded ?Confirmed ?Type ibuprofen 600 mg tablet 600 mg PO Q6H PRN Cramping #60 tabs 06/26/20 12/09/24 Rx venlafaxine 25 mg tablet 25 mg PO BID 10/19/21 12/09/24 History atomoxetine 40 mg capsule 40 mg PO DAILY 11/22/24 12/09/24 History Patient hx anesthesia problems: none Family hx anesthesia problems: none Results Review: All pre-operative results and documents have been reviewed as part of the pre- operative evaluation. [facility] Past Medical History Medical History (Updated 12/08/24 @ 16:02 by Sergio Roca DO) Anxiety Ganglion cyst (normal spontaneous vaginal delivery) Depression and not yet delivered Obesity Family History Family History Grandparent Family history of malignant neoplasm of breast Hypertension DEASED Father Malignant neoplasm of prostate Mother No problems noted. Sibling No problems noted. Social History Social History Smoking status: Never smoker Second hand tobacco smoke exposure: Yes Alcohol intake: current Drinks per week: 4 Substance use: never Substance use type: does not use Living arrangements: with family Spiritual care concerns: No Anes - Eval Final PreProcedure Day of Procedure 12/09/24 08:29 Patient weight: normal Heart: regular rate and rhythm Lungs: clear to auscultation and normal air movement Airway: Mallampati scale class II Neurological: alert and oriented Last oral intake: >/= 8 hours ASA classification: II Emergent: no Anesthetic plan: proceed Anesthesia type and monitoring: general GIVS and standard monitoring Results Review: All pre-operative results and documents have been reviewed as part of the pre- operative evaluation. Informed Consent: The patient's anesthetic plan and its attendant risks and benefits were discussed with the patient/family/POA. Questions were solicited and answers provided to the satisfaction of the patient/family/POA.
[2024-12-09] MEDS: ceFAZolin SODIUM 2 GM/20 ML SW SYRINGE IV PUSH (09:15)
[2024-12-09] MEDS: BUPIVACAINE/EPINEPHRINE 0.5% 10 ML VIAL 2 ML INFILTRATE (09:17)
[2024-12-09] MEDS: LIDOCAINE 1% LOCAL INJ 20 ML VIAL INFILTRATE (09:17)
[2024-12-09 09:42] VITALS: BP 91/54; PULSE 82; RESP 14; O2SAT 100
[2024-12-09 09:52] VITALS: BP 92/54; PULSE 66; RESP 15; O2SAT 100
[2024-12-09 10:02] VITALS: BP 90/60; PULSE 60; RESP 14; O2SAT 100
[2024-12-09 10:12] VITALS: BP 94/63; PULSE 74; RESP 15; O2SAT 100
[2024-12-09 10:22] VITALS: BP 91/60; PULSE 60; RESP 14; O2SAT 100
--- NOTE | 2024-12-09 11:43 | WPDANESPN ---
Anes - Prog Note Post-Op Date/Time: 12/09/24 11:43 Cardiovascular status: normal Respiratory status: normal Airway patency: baseline Mental status: baseline Post-Op hydration status: normal Vital Signs: Last Vital Signs Temp 36.5 C 12/09/24 08:26 Pulse 60 12/09/24 10:22 Resp 14 12/09/24 10:22 BP 91/60 L 12/09/24 10:22 Pulse Ox 100 12/09/24 10:22 O2 Del Method Room Air 12/09/24 10:22 Pain Score (VAS): 0 I/O: Intake & Output 12/08/24 12/09/24 12/09/24 23:59 07:59 15:59 Intake Total 800 Balance 800 Post-procedural complaints: none Patient Feedback: Patient satisfied with anesthetic care. Other Findings: Patient vital signs back to baseline. Patient denies nausea and vomiting. Patient's pain under control. Patient OK for discharge.
== END 2024-12-09 10:35 | disposition home or self-care (01) ==
PROVIDERS: PCP Family Medicine; Visit Provider Plastic Surgery
PROC: (CPT 25111; principal; 2024-12-09 09:15)
DX: M67.431 Ganglion, right wrist (principal)
CPT/HCPCS: 25111

== ENCOUNTER 2024-12-09 10:06 | Outpatient (NON) | payer OTHER, SELFPAY ==
--- NOTE | 2024-12-09 | S_PTH ---
PATIENT: Akila Kohler LOC: [facility] #:[id number] AGE/SX: 39/F ROOM: RE12/09/[address]: David Lindsay MD : 1985 BED: DIS: 12/09/2024 SPEC #: [id number] RECD: 12/10/24 10:11 STATUS: JOHN REFarrukh #: [id number] LEXX: 12/09/24 00:[address]: David Lindsay DEPT: [facility] Surgical RECD BY: Jesica Helton ENTERED: 12/10/24 10:11 SP TYPE: Surgical OTHR DR: Bryson Hunter MD Tissues: A - Cyst Procedures: Hematoxylin and Eosin Stain Gross and Microscopic Level 4
--- OUTSIDE RECORDS SUMMARY | 2024-12-10 10:18 | XMS_ITS | Referral Summary ---
Author Organization [facility] [place] [facility] Address [address] [place] [phone] Care Team Providers Care Bioinformatics Engineer Name Role Phone Bryson Hunter MD Primary Care Provider Allergies No known active allergies Medications atomoxetine [...] on file Legal Sex Female 10:54 AM FAMILY MEDICINE PHYSICIAN ASSISTANT Gender Identity Not on file Sexual Orientation Not on file Last Filed Vital Signs Vital Sign Reading Time Taken Comments Blood Pressure 112/64 05/28/2023 3:07 PM FAMILY MEDICINE PHYSICIAN ASSISTANT Pulse 96 05/28/2023 3:07 PM FAMILY MEDICINE PHYSICIAN ASSISTANT Temperature 38.1 C (100.6 F) 05/28/2023 3:07 PM FAMILY MEDICINE PHYSICIAN ASSISTANT Respiratory Rate 18 05/28/2023 3:07 PM FAMILY MEDICINE PHYSICIAN ASSISTANT Oxygen Saturation 98% 05/28/2023 3:07 PM FAMILY MEDICINE PHYSICIAN ASSISTANT Inhaled Oxygen Concentration - - Weight 63.5 kg (140 lb) 05/28/2023 3:07 PM FAMILY MEDICINE PHYSICIAN ASSISTANT Height 170.2 cm (5' 7) 05/28/2023 3:07 PM FAMILY MEDICINE PHYSICIAN ASSISTANT Body Mass Index 21.93 05/28/2023 3:07 PM FAMILY MEDICINE PHYSICIAN ASSISTANT Plan of Treatment Not on file Insurance CIGNA CIGNA Care Teams Bioinformatics Engineer Relationship Specialty Start Date End Date Bryson Hunter MD PCP - General Family Medicine 05/28/23
--- OUTSIDE RECORDS SUMMARY | 2024-12-10 10:18 | XMS_ITS | Clinical Summary ---
Author Organization [facility] [place] [facility] Address [address] [place] [address] Care Team Providers Care Produce Weigher Name Role Phone Bryson Hunter MD Primary [...] on file Legal Sex Female 10:54 AM DIALYSIS BIOMED TECHNICIAN Gender Identity Not on file Sexual Orientation Not on file Obstetrics History Last Filed Vital Signs Vital Sign Reading Time Taken Comments Blood Pressure 112/64 05/28/2023 3:07 PM DIALYSIS BIOMED TECHNICIAN Pulse 96 05/28/2023 3:07 PM DIALYSIS BIOMED TECHNICIAN Temperature 38.1 C (100.6 F) 05/28/2023 3:07 PM DIALYSIS BIOMED TECHNICIAN Respiratory Rate 18 05/28/2023 3:07 PM DIALYSIS BIOMED TECHNICIAN Oxygen Saturation 98% 05/28/2023 3:07 PM DIALYSIS BIOMED TECHNICIAN Inhaled Oxygen Concentration - - Weight 63.5 kg (140 lb) 05/28/2023 3:07 PM DIALYSIS BIOMED TECHNICIAN Height 170.2 cm (5' 7) 05/28/2023 3:07 PM DIALYSIS BIOMED TECHNICIAN Body Mass Index 21.93 05/28/2023 3:07 PM DIALYSIS BIOMED TECHNICIAN Plan of Treatment Health Maintenance Due Date [...] patient's age to complete this topic Insurance [employer] Care Teams Produce Weigher Relationship Specialty Start Date End Date Bryson Hunter MD PCP - General Family Medicine 05/28/23
--- OUTSIDE RECORDS SUMMARY | 2024-12-10 10:18 | XMS_ITS | Clinical Summary ---
Author Organization [facility] Address [address] [address] [place] [address] Phone Care Team Providers Care Culinary Specialist Name Role Phone Bryson Hunter MD Primary Care Provider [phone] Family History Medical History Relation Name Comments [...] Insurance [employer] OPEN ACCESS HMO Care Teams Culinary Specialist Relationship Specialty Start Date End Date Bryson Hunter MD [address] [place] [address] PCP - General Family Practice 10/08/17
== END 2024-12-09 10:07 | disposition home or self-care (01) ==
LOC: ANHLAB 12-10 10:06
PROVIDERS: PCP Family Medicine; Visit Provider Plastic Surgery
DX: M67.431 Ganglion, right wrist (principal)
CPT/HCPCS: 88305

== ENCOUNTER 2025-01-26 15:50 | Outpatient (CLI) | payer OTHER, SELFPAY ==
--- NOTE | ~2025-01-26 | XR_ITS ---
EXAM: XR shoulder RT min 2V DATE: 01/26/2025 16:10 HISTORY: M25.511 - Pain in right shoulder . COMPARISON: None available. FINDINGS: Normal mineralization. No fracture or dislocation. No lytic or blastic lesion. Joint space s are maintained. No erosion or periosteal change. Soft tissues within normal limits. IMPRESSION: Normal right shoulder radiograph findings. If pain persists, recommend MRI of the shoulde r. Reviewed, dictated and finalized at location K. IMPRESSION: Normal right shoulder radiograph findings. If pain persists, recomm end MRI of the shoulder.
== END 2025-01-26 15:51 | disposition home or self-care (01) ==
LOC: MICIMG 15:50
PROVIDERS: PCP Family Medicine
DX: M25.511 Pain in right shoulder (principal)
CPT/HCPCS: 73030

== ENCOUNTER 2025-02-01 05:47 | Emergency (ER) | payer OTHER, SELFPAY ==
--- OUTSIDE RECORDS SUMMARY | 2025-02-01 05:50 | XMS_ITS | Clinical Summary ---
Author Organization [facility] Address [address] [address] [place] [address] Phone Care Team Providers Care Ruffling Hemmer Automatic Name Role Phone Bryson Hunter MD Primary Care Provider [phone] Family History Medical History Relation Name Comments [...] Health Maintenance Due Date Last Done Comments HPV VACCINES (1 - 3-dose series) 2002 DTAP/TDAP/TD VACCINES (1 - Tdap) 2006 HEPATITIS B VACCINES (1 of 3 - 19+ 3-dose series) 03/15 HPV/Cotest (21-29) 2008 CERVICAL CANCER SCREENING 2017 HPV/Cotest (30-65) 2017 PAP SMEAR 2017 INFLUENZA VACCINE (#1) 2025 04/22/2023 Insurance C[employer] OPEN ACCESS HMO Care Teams Ruffling Hemmer Automatic Relationship Specialty Start Date End Date Bryson Hunter MD [address] [place] [address] PCP - General Family Practice 10/08/17
--- OUTSIDE RECORDS SUMMARY | 2025-02-01 05:50 | XMS_ITS | Referral Summary ---
Author Organization [facility] Address [address] [place] [phone] Care Team Providers Care Putty Mixer Name Role Phone Bryson Hunter MD Primary Care Provider [phone] Allergies No known active allergies Medications atomoxetine [...] on file Legal Sex Female 10:54 AM THERMIT WELDING MACHINE OPERATOR Gender Identity Not on file Sexual Orientation Not on file Last Filed Vital Signs Vital Sign Reading Time Taken Comments Blood Pressure 112/64 05/28/2023 3:07 PM THERMIT WELDING MACHINE OPERATOR Pulse 96 05/28/2023 3:07 PM THERMIT WELDING MACHINE OPERATOR Temperature 38.1 C (100.6 F) 05/28/2023 3:07 PM THERMIT WELDING MACHINE OPERATOR Respiratory Rate 18 05/28/2023 3:07 PM THERMIT WELDING MACHINE OPERATOR Oxygen Saturation 98% 05/28/2023 3:07 PM THERMIT WELDING MACHINE OPERATOR Inhaled Oxygen Concentration - - Weight 63.5 kg (140 lb) 05/28/2023 3:07 PM THERMIT WELDING MACHINE OPERATOR Height 170.2 cm (5' 7) 05/28/2023 3:07 PM THERMIT WELDING MACHINE OPERATOR Body Mass Index 21.93 05/28/2023 3:07 PM THERMIT WELDING MACHINE OPERATOR Plan of Treatment Not on file Insurance CIGNA CIGNA Care Teams Putty Mixer Relationship Specialty Start Date End Date Bryson Hunter MD PCP - General Family Medicine 05/28/23
--- OUTSIDE RECORDS SUMMARY | 2025-02-01 05:50 | XMS_ITS | Clinical Summary ---
Author Organization [facility] [place] [facility] Address [address] [place] [phone] Care Team Providers Care Cell Plasterer Name Role Phone Bryson Hunter MD Primary [...] on file Legal Sex Female 10:54 AM MOLASSES AND CARAMEL OPERATOR Gender Identity Not on file Sexual Orientation Not on file Obstetrics History Last Filed Vital Signs Vital Sign Reading Time Taken Comments Blood Pressure 112/64 05/28/2023 3:07 PM MOLASSES AND CARAMEL OPERATOR Pulse 96 05/28/2023 3:07 PM MOLASSES AND CARAMEL OPERATOR Temperature 38.1 C (100.6 F) 05/28/2023 3:07 PM MOLASSES AND CARAMEL OPERATOR Respiratory Rate 18 05/28/2023 3:07 PM MOLASSES AND CARAMEL OPERATOR Oxygen Saturation 98% 05/28/2023 3:07 PM MOLASSES AND CARAMEL OPERATOR Inhaled Oxygen Concentration - - Weight 63.5 kg (140 lb) 05/28/2023 3:07 PM MOLASSES AND CARAMEL OPERATOR Height 170.2 cm (5' 7) 05/28/2023 3:07 PM MOLASSES AND CARAMEL OPERATOR Body Mass Index 21.93 05/28/2023 3:07 PM MOLASSES AND CARAMEL OPERATOR Plan of Treatment Health Maintenance Due Date [...] patient's age to complete this topic Insurance [employer] Care Teams Cell Plasterer Relationship Specialty Start Date End Date Brysno Hunter MD PCP - General Family Medicine 05/28/23
[2025-02-01 05:55] VITALS: BP 119/82; PULSE 71; RESP 20; TEMP 36.4; O2SAT 100
[2025-02-01 06:15] VITALS: BP 111/79; PULSE 73; RESP 18; O2SAT 98
--- NOTE | 2025-02-01 06:58 | PC.NURSE ---
Pt requesting pain medication. EDP notified. No new orders at this time. This RN brought pt ice and warm blanket.
--- NOTE | 2025-02-01 07:12 | ED.UPPEXIN ---
HPI - Extremity Injury (Upper) General Chief Complaint: Extremity Injury, Upper Stated Complaint: right shoulder pain Time Seen by Provider: 02/01/25 06:53 Source: patient Mode of arrival: ambulatory Limitations: no limitations History of Present Illness HPI narrative: [id number] 39-year-old female presents with right shoulder pain. She saw her primary care provider about this last week and was referred to physical therapy which she started on . Imaging was negative for acute process; MRI was recommended but patient's PCP office closed at 12noon on Friday. She went to urgent care on Friday and received steroid and other meds. She has been trialing, [place], steroid, muscle relaxer, lidocaine. Had been told not to take anti-inflammatory well on steroid but has completed a course of that now. She has pain along the superior posterior aspect of her shoulder girdle. Patient's degree of pain is causing her to have difficulty sleeping. She took a [place]/Vicodin tablet at approximately 4:00 a.m., one of her 's, due to the pain. She denies any paresthesias. She went to physical therapy already today. Was supposed to be going to [place] today for vacation. Related Data Home Medications ?Medication ?Instructions ?Recorded ?Confirmed ?Last Taken ?Type venlafaxine 25 mg tablet 25 mg PO BID 10/19/21 01/26/25 12/08/24 History methylphenidate HCl 27 mg mg PO 01/26/25 01/26/25 Unknown History tablet,extended release 24 hr Allergies Allergy/AdvReac Type Severity Reaction Status Date / Time No Known Allergies Allergy Verified 02/01/25 05:58 [facility] Past Medical History Medical History Right hand dominant Anxiety Ganglion cyst (normal spontaneous vaginal delivery) Depression Obesity Family History Family History Grandparent Family history of malignant neoplasm of breast Hypertension DEASED Father Malignant neoplasm of prostate Mother No problems noted. Sibling No problems noted. Social History Social History Smoking status: Never smoker Second hand tobacco smoke exposure: Yes Alcohol intake: current Drinks per week: 4 Substance use: never Substance use type: does not use Do You Feel Safe in your Home?: Yes Lack of Transportation: No Lack of Food: Never True Current Housing: I Have Housing Concerned About Future Housing: No Difficulty Paying Gas/Electric Bills: No Difficulty Paying for Meds: No Currently Unemployed: No Difficulty w/ Childcare or Family Care: No Living arrangements: with family Spiritual care concerns: No Exam Narrative: GENERAL: Well-appearing, well-nourished, in moderate acute distress. HEAD: Normocephalic, atraumatic. EYES: Non injected, non icteric ENT: Nares clear, no rhinorrhea or epistaxis. Gross auditory acuity intact. NECK: Supple. No meningismus. CHEST: Speaking in full sentences. No respiratory distress. HEART: Regular rate and rhythm. . ABDOMEN: Soft, nondistended. No rigidity or guarding. Not peritoneal EXTREMITIES: Normal range of motion. No evidence of frozen shoulder/adhesive capsulitis. No upper extremity edema. No tenderness to palpation throughout shoulder girdle. She has 5/5 strength with bilateral elbow flexion extension. Patient able to perform Neer's test w/o issue. Performs Alex liftoff test without abnormalities. SKIN: Warm, dry, no rash. Skin intact throughout anterior superior posterior and lateral aspect of shoulder without evidence of lesions, vesicles, ecchymosis, erythema, infection NEURO: No focal deficits. Alert and oriented. Answering questions. Following commands. Normal speech without aphasia or dysarthria. Sensation intact throughout bilateral upper extremities, though states slightly diminished sensation over R deltoid compared to left. PSYCH: Congruent mood and affect. Tearful Course Vital Signs Vital signs: Vital Signs Temperature 97.6 F 02/01/25 05:55 Pulse Rate 71 02/01/25 05:55 Respiratory Rate 20 02/01/25 05:55 Blood Pressure 119/82 02/01/25 05:55 Pulse Oximetry 100 02/01/25 05:55 Oxygen Delivery Room Air 02/01/25 05:55 Temperature 97.6 F 02/01/25 05:55 Pulse Rate 73 02/01/25 06:15 Respiratory Rate 18 02/01/25 06:15 Blood Pressure 111/79 02/01/25 06:15 Pulse Oximetry 98 02/01/25 06:15 Oxygen Delivery Room Air 02/01/25 05:55 MDM - Extremity Injury (Upper) MDM Narrative Medical decision making narrative: [id number] 39-year-old female presents with right shoulder pain. She saw her primary care provider for this last week and has been taking medicines and doing physical therapy. Plain film imaging negative for acute process. She went to urgent care on Friday given her PCP office was closed. Has not been able to be scheduled for an MRI yet. Pain persists despite combination of medications and it is causing her to have difficulty sleeping. In the emergency department they are afebrile with vital signs within normal limits. Patient given IM Dilaudid initially for pain. She states this is helping somewhat although not resolved. CT noncontrast was initially ordered in the ED however through shared decision making with the patient, we discussed that the more sensitive imaging modality is MRI and these are not performed in the emergency department. Based on this, we discussed that a CT scan may show some pathology but neither a positive or negative CT scan would negate the need for MRI thus she is questioning the need for CT. This is reasonable as it is unlikely to change interval management immediately and concern for bony pathology is low - suspect tendinopathy/rotator cuff tear,etc. I do believe patient would benefit from a stronger muscle relaxer to aid in inability to sleep and get some rest for some recovery although ultimately she will require an MRI and I suspect she will require additional/alternative pain management strategies such as injections, etc. and possibly surgical intervention. Patient is prescribed a short course of Valium as a muscle relaxer to also aid in helping her sleep. Prescription monitoring assistance database is reviewed and does show that she recently filled the cyclobenzaprine that her PCP ARCHITECTURAL DESIGN LECTURER prescribed but otherwise no controlled substances in the same drug class. Advised follow-up with her PCP and/or orthopedic surgeon referred to for next steps including obtaining outpatient imaging MRI. Differential Diagnosis Differential diagnosis: Likely dislocation of shoulder and other (tendinopathy/rotator cuff issues (tears, etc.); adhesive capsulitis/frozen shoulder; ) Medical Records Attestation: I reviewed the patient's medical records. Medical records narrative: XRay 01/26/25 IMPRESSION: Normal right shoulder radiograph findings. If pain persists, recommend MRI of the shoulder. Discharge Plan Discharge Clinical Impression: Right shoulder pain Qualifiers: Chronicity: unspecified Qualified Code(s): M25.511 - Pain in right shoulder Patient Disposition: Home Condition: Stable Instructions: Antibiotic Form, Shoulder Pain (ED) Additional Instructions: Acetaminophen/Tylenol (maximum 4000 mg per day) is safe to take with NSAIDs (ibuprofen/Motrin) for pain relief. You can continue taking the other multimodal pain medications you have been prescribed and for breakthrough pain and to help with muscle relaxation especially at night to help you sleep, a short course of additional medication has been prescribed. Take as directed. Follow-up with your PCP and/or the orthopedic surgeon listed below as soon as possible to discuss follow up and obtaining an MRI in the outpatient setting. Return to the emergency department with any new or worsening symptoms. Patient Language: [place] Citizen Prescriptions: New ibuprofen 600 mg tablet 600 mg PO TID PRN (Reason: pain) Qty: 30 0RF acetaminophen 500 mg capsule 1,000 mg PO Q6H PRN (Reason: pain) Qty: 30 0RF diazepam [Valium] 2 mg tablet 2 mg PO HS PRN (Reason: muscle spasm) Qty: 7 0RF No Action methylphenidate HCl 27 mg tablet extended release 24hr PO cyclobenzaprine 10 mg tablet 10 mg PO TID PRN (Reason: muscle spasm) Qty: 30 0RF venlafaxine 25 mg tablet 25 mg PO BID ibuprofen 600 mg Tablet 600 mg PO Q6H PRN (Reason: Cramping) Qty: 60 0RF tramadol 50 mg tablet 50 mg PO Q6-8H PRN (Reason: pain) Qty: 14 0RF Follow-up/Referrals: Enedina Hugo NP [Advanced Practice Nurse] - Bryson Hunter MD [Primary Care Provider] - Fei Art MD [Physician] - (orthopedics) Stand Alone Forms: Work/School Release IP Time of Disposition: 08:07
[2025-02-01] MEDS: HYDROmorphone HCL INJ (*CRX) 2 MG/ML VIAL 0.5 MG IM (07:16)
--- OUTSIDE RECORDS SUMMARY | 2025-02-01 07:20 | XMS_ITS | Referral Summary ---
Author Organization [facility] [place] [facility] Address [address] [place] [id number] Care Team Providers Care Senior Gl Accountant Name Role Phone Bryson Hunter MD Primary [...] on file Legal Sex Female 10:54 AM MEDICAL DOCTOR MD Gender Identity Not on file Sexual Orientation Not on file Last Filed Vital Signs Vital Sign Reading Time Taken Comments Blood Pressure 112/64 05/28/2023 3:07 PM MEDICAL DOCTOR MD Pulse 96 05/28/2023 3:07 PM MEDICAL DOCTOR MD Temperature 38.1 C (100.6 F) 05/28/2023 3:07 PM MEDICAL DOCTOR MD Respiratory Rate 18 05/28/2023 3:07 PM MEDICAL DOCTOR MD Oxygen Saturation 98% 05/28/2023 3:07 PM MEDICAL DOCTOR MD Inhaled Oxygen Concentration - - Weight 63.5 kg (140 lb) 05/28/2023 3:07 PM MEDICAL DOCTOR MD Height 170.2 cm (5' 7) 05/28/2023 3:07 PM MEDICAL DOCTOR MD Body Mass Index 21.93 05/28/2023 3:07 PM MEDICAL DOCTOR MD Plan of Treatment Not on file Insurance CIGNA CIGNA Care Teams Senior Gl Accountant Relationship Specialty Start Date End Date Bryson Hunter MD PCP - General Family Medicine 05/28/23
--- OUTSIDE RECORDS SUMMARY | 2025-02-01 07:20 | XMS_ITS | Clinical Summary ---
Author Organization [facility] [place] [facility] Address [address] [place] [id number] Care Team Providers Care Dried Fruit Washer Name Role Phone Bryson Hunter MD Primary Care Provider [phone] Allergies No known active allergies Medications atomoxetine [...] on file Legal Sex Female 10:54 AM INCLUSION SPECIALIST Gender Identity Not on file Sexual Orientation Not on file Obstetrics History Last Filed Vital Signs Vital Sign Reading Time Taken Comments Blood Pressure 112/64 05/28/2023 3:07 PM INCLUSION SPECIALIST Pulse 96 05/28/2023 3:07 PM INCLUSION SPECIALIST Temperature 38.1 C (100.6 F) 05/28/2023 3:07 PM INCLUSION SPECIALIST Respiratory Rate 18 05/28/2023 3:07 PM INCLUSION SPECIALIST Oxygen Saturation 98% 05/28/2023 3:07 PM INCLUSION SPECIALIST Inhaled Oxygen Concentration - - Weight 63.5 kg (140 lb) 05/28/2023 3:07 PM INCLUSION SPECIALIST Height 170.2 cm (5' 7) 05/28/2023 3:07 PM INCLUSION SPECIALIST Body Mass Index 21.93 05/28/2023 3:07 PM INCLUSION SPECIALIST Plan of Treatment Health Maintenance Due [...] patient's age to complete this topic Insurance [employer] CIGNA Care Teams Dried Fruit Washer Relationship Specialty Start Date End Date Bryson Hunter MD PCP - General Family Medicine 05/28/23
--- OUTSIDE RECORDS SUMMARY | 2025-02-01 07:20 | XMS_ITS | Clinical Summary ---
Author Organization [facility] Address [address] [address] [place] [phone] Phone Care Team Providers Care Insole Stiffener Name Role Phone Bryson Hunter MD Primary Care Provider [phone] Family History Medical History Relation Name Comments [...] Insurance [employer] OPEN ACCESS HMO Care Teams Insole Stiffener Relationship Specialty Start Date End Date Bryson Hunter MD [address] [place] [address] PCP - General Family Practice 10/08/17
[2025-02-01] MEDS: diazePAM (*CRX) 2 MG TABLET PO (08:22)
[2025-02-01 08:29] VITALS: BP 111/72; PULSE 84; RESP 17; O2SAT 100
== END 2025-02-01 08:30 | disposition home or self-care (01) ==
PROVIDERS: Emergency Provider Student in an Organized Health Care Education/Training Program; PCP Family Medicine
DX: M25.511 Pain in right shoulder (principal); F41.9 Anxiety disorder, unspecified; F32.A Depression, unspecified; Z77.22 Contact with and (suspected) exposure to environmental tobacco smoke (acute) (chronic); Z79.899 Other long term (current) drug therapy
CPT/HCPCS: 96372; 99283; A9270; J1171

== ENCOUNTER 2025-02-07 14:01 | Outpatient (CLI) | payer OTHER, SELFPAY ==
--- NOTE | ~2025-02-07 | MR_ITS ---
EXAMINATION: MR shoulder RT wo con DATE: 02/07/2025 14:32 INDICATION: Right shoulder pain and limited range of motion TECHNIQUE: Magnetic resonance imaging (MRI) of the right shoulder was performed without intravenous c ontrast. Sequences included axial PD-weighted FS FSE, coronal oblique PD-weighted FS FSE, coronal obl ique T2-weighted FS FSE, sagittal PD-weighted FS FSE, and sagittal T1-weighted SE. COMPARISON: None. FINDINGS: Coracoacromial arch: The acromion undersurface is curved in morphology (type II). The coracoacromial ligament is normal. M ild acromioclavicular osteoarthritis. Rotator cuff: Mild tendinopathy and small partial-thickness likely intrasubstance tear along the anterior superior facet footplate of the conjoined portion of the supraspinatus and infraspinatus tendons. The tear patrica sures 6 mm AP and involves approximately one third of the tendon thickness. The tear is located near but does not appear to definitively compromise the articular surface of the tendon. The more anterior supraspinatus, and subscapularis tendon are normal. Moderate tendinopathy without discrete tear of t he more posterior infraspinatus tendon. The teres minor tendon is normal. Normal rotator cuff muscle bulk and signal. Biceps tendon, glenoid labrum and glenohumeral cartilage: Long head of the biceps tendon is normal. Glenoid labrum is normal. Glenohumeral cartilage is normal. Fluid: Physiologic amount of fluid in the glenohumeral joint and biceps tendon sheath. No loose osteochondr al bodies. No abnormal increased fluid signal in the subacromial/subdeltoid bursa to suggest bursitis . Bones: Normal marrow signal with no edema, fracture or abnormal marrow replacing process. Mild cystic change at the greater tuberosity likely related to chronic rotator cuff disease.. IMPRESSION: 1. Moderate infraspinatus tendinopathy and mild tendinopathy with small mild intrasubstance tear at t he middle facet footplate of the conjoined portion of the supraspinatus and infraspinatus tendons. Reviewed, dictated and finalized at location A. IMPRESSION: 1. Moderate infraspinatus tendinopathy and mild tendinopathy with small mild in trasubstance tear at the middle facet footplate of the conjoined portion of the supraspinatus and infraspinatus tendons.
== END 2025-02-07 14:02 | disposition home or self-care (01) ==
PROVIDERS: PCP Family Medicine
DX: M67.911 Unspecified disorder of synovium and tendon, right shoulder (principal); M77.8 Other enthesopathies, not elsewhere classified; S46.811A Strain of other muscles, fascia and tendons at shoulder and upper arm level, right arm, initial encounter; X58.XXXA Exposure to other specified factors, initial encounter; R29.898 Other symptoms and signs involving the musculoskeletal system
CPT/HCPCS: 73221